=== PATIENT | male | born 1980 | race Caucasian/White ===

== ENCOUNTER → 2017-09-26 07:10 | Outpatient (CLI) | payer OTHER, SELFPAY ==
[2017-09-26 08:13] LABS: AST(SGOT) 25 U/L (15-37); Alanine Aminotransfer ALT/SGPT 61 U/L (16-61); Albumin, Serum 4.1 g/dL (3.2-5.0); Alkaline Phosphatase 81 U/L (45-117); Bilirubin, Direct 0.16 mg/dL (0.00-0.30); Cholesterol 163 mg/dL (200); Globulin 3.3 g/dL (2.2-4.2); High Density Lipoprotein 56 mg/dL; Protein, Total 7.4 g/dL (6.4-8.2); Triglycerides 71 mg/dL; Very Low Density Lipoprotein 14 mg/dL (5-40)
== END ==
PROVIDERS: Family Provider Family Medicine; PCP Family Medicine; Visit Provider Internal Medicine Cardiovascular Disease
DX: E78.5 Hyperlipidemia, unspecified (principal)
CPT/HCPCS: 36415; 80061; 80076

== ENCOUNTER 2018-03-10 16:00 | Outpatient (RCR) | payer OTHER, SELFPAY ==
--- NOTE | 2017-10-12 13:06 | MASS.EVAL ---
Massage Therapy Evaluation: Initial Evaluation Date: 10/05/2017 SUBJECTIVE: Jaya is a 37 year old male who was referred to the [facility] facility for a massotherapy evaluation by Dr. Samson Forbes with the diagnosis of migraines. Jaya presents today with the symptoms of having pain on the left side of his neck causing migraines. He reports having a medical history of migraines in the past. He reports having minimal limitations during his daily activities currently. OBJECTIVE: Upon observation Jaya has poor posture with her head forward and shoulders forward from the neutral position in sitting and standing. After examination and palpation I found him to have very high muscle tension with tenderness and myofascial restrictions in his sub occipitals, trapezius, rhomboids, scalenes and thoracic and pectorial muscles. The left was much worse then the right side. The first treatment consisted of a one hour massage to his neck and shoulders with myofascial release, muscle stripping, trigger point compression techniques, and cervical manual traction. ASSESSMENT: I feel that Jaya is a good candidate for massotherapy at this time. He had a favorable response to the first treatment with reduction in his muscle aches, pain and tension. He seemed to be a little bit sore from the treatment but his range of motion seemed to greatly improve. PLAN: The plan of care was reviewed with the patient. The patient is to be seen for a total of ten 1-hour sessions for the year 2017, with a recommendation of being treated every two weeks to get the migraines and neck and shoulder pain under control.
--- NOTE | 2018-07-05 13:06 | DS.PCM_ITS ---
Massage Therapy Discharge Summary: Discharge Date: 07/05/2018 Jaya was seen for a massotherapy evaluation on 10/05/2017 with the diagnosis of neck tightness with migraines. He was treated with three sessions of massage therapy consisting of moderate to deep pressure soft tissue techniques, myofascial release and trigger point compression to his cervical muscles and shoulders. Jaya responded well to the therapy by reporting decreased tension and pain throughout his neck and shoulders. He was able to schedule six appointments for the year 2017, which massage helped him. At this time this patient is being discharged from our care at [facility] facility.
== END 2018-03-10 19:00 | disposition home or self-care (01) ==
LOC: MASS 16:00
PROVIDERS: Family Provider Family Medicine; PCP Family Medicine; Visit Provider Family Medicine
DX: G43.909 Migraine, unspecified, not intractable, without status migrainosus (principal); M54.2 Cervicalgia
CPT/HCPCS: 97124

== ENCOUNTER → 2018-05-22 16:18 | Outpatient (CLI) | payer OTHER, SELFPAY ==
[2018-05-22 17:02] LABS: Absolute Lymphocyte Count 2.06 X10^3/ul (0.83-4.51); Absolute Neutrophil Count 2.9 X10^3/uL (2.0-7.7); Basophil# 0.02 X10^3/uL; Basophil% 0.3 % (0-1); Eosinophil# 0.18 X10^3/uL; Eosinophils% 3.1 % (0-5); Hematocrit 43.3 % (40-54); Hemoglobin 15.4 g/dl (13.0-16.5); Lymphocyte # 2.06 X10^3/ul (4.0); Lymphocyte % 35.5 % (19-41); Mean Corp Hgb Conc 35.6 g/gl (32-36); Mean Corpuscular Hgb 31.3 pg (27.0-32.0); Mean Platelet Vol. 11.7 fl (6.2-12.0); Monocyte# 0.65 X10^3/uL; Monocyte% 11.2 % (0-10); Neutrophil # 2.89 X10^3/uL (2.7-7.7); Neutrophil % 49.7 % (47-70); Platelet Count 183 K/mm3 (150-450); RBC Distribution Width CV 12.5 % (11.6-14.6); RBC Distribution Width SD 38.9 fl (35.1-43.9); Red Blood Count 4.92 M/mm3 (4.6-6.2); White Blood Count 5.8 K/mm3 (4.4-11.0)
[2018-05-22 17:14] LABS: CRP 4.35 mg/L (0.0-3.0)
[2018-05-22 17:16] LABS: POSITIVE COUNT NO; POSITIVE DIFFERENTIAL NO; POSITIVE MORPHOLOGY NO
== END ==
PROVIDERS: Family Provider Family Medicine; PCP Family Medicine; Referring Provider Family Medicine; Visit Provider Family Medicine
DX: M54.2 Cervicalgia (principal)
CPT/HCPCS: 36415; 85025; 86140

== ENCOUNTER → 2018-05-24 09:20 | Outpatient (CLI) | payer OTHER, SELFPAY ==
--- NOTE | 2018-05-24 09:24 | RAD_ITS ---
STUDY: X-RAY - CERVICAL SPINE REASON FOR EXAM: Male, 37 years old. Neck pain for several weeks. TECHNIQUE: 5 view(s) of the cervical spine were obtained including oblique views. COMPARISON: Comparison is made with prior examination dated August 23, 2014. FINDINGS: Normal anterior atlantoaxial articulation. Normal odontoid process. There is straightening of the normal cervical lordosis. Normal vertebral bodies and endplates. Normal disc space heights. Normal visualized intervertebral neuroforamina. The soft tissue structures are unremarkable. RAD/Cerv Spine 4 or 5 Views IMPRESSION: Straightening of the normal cervical lordosis. Electronically Signed: Lefty Beauchamp MD at 15:36 EDT Tel [phone], Service support ,
== END ==
PROVIDERS: Family Provider Family Medicine; PCP Family Medicine; Referring Provider Family Medicine; Visit Provider Family Medicine
DX: M54.2 Cervicalgia (principal)
CPT/HCPCS: 72050

== ENCOUNTER 2019-09-08 07:32 | Inpatient (IN) | payer OTHER, SELFPAY ==
[2019-05-28 09:53] VITALS: BMI 26.2
[2019-09-08 07:35] VITALS: BP 138/91; PULSE 121; RESP 18; TEMP 36.8; O2SAT 96; BMI 26.9
--- NOTE | 2019-09-08 07:46 | CT_ITS ---
STUDY: CT ABDOMEN AND PELVIS WITH CONTRAST REASON FOR EXAM: Male, 39 years old. FEVER AND LLQ PAIN RADIATION DOSAGE (If Supplied By Facility): CTDIvol = ( 17.04 ) mGy, DLP = ( 1149.11 ) mGycm TECHNIQUE: Transaxial images were obtained from the dome of the diaphragm to the symphysis pubis without oral contrast. IV 100mL Isovue-300 was administered. Sagittal and coronal images were reconstructed. Individualized dose optimization techniques were used for this CT. COMPARISON: None. FINDINGS: There is 0.4 cm right lower lung nodule. The visualized portions of the heart are within normal limits. Normal liver. Normal gallbladder and extrahepatic biliary system. There is mild splenomegaly. There are multiple benign calcified granulomata of the spleen. Normal pancreas. Normal bilateral adrenal glands. Normal right kidney. Normal left kidney. Normal visualized stomach. Normal small intestine. There is diverticulosis, with thickening of the sigmoid colon wall, and pelvic pericolonic inflammation changes consistent with acute diverticulitis. The appendix is visualized and appears normal. Normal abdominal aorta. Normal inferior vena cava. Normal retroperitoneum. Normal urinary bladder. Normal abdominal wall. Normal osseous structures. CT/Abdomen/Pelvis W IV Cont ONLY IMPRESSION: Sigmoid diverticulitis. No obstruction or abscess. Splenomegaly. Electronically Signed: Tristan Chisholm MD at 8:47 EST , Service support ,
--- NOTE | 2019-09-08 07:48 | ED.DCSUM_ITS ---
History of Present Illness Chief Complaint: Abd Pain Detail of Chief Complaint: Lower abdominal pain Informant: Patient Onset: Days - Onset Context: Sudden Onset Timing: Continuous Quality: Pain Location: Right and left lower quadrant Current Severity: Mild Maximum Severity: Severe Worsened by: Walking, laughing Relieved by: Nothing Associated Symptoms: Fever, nausea, loss of appetite and symptoms Narrative: Patient is a healthy 39-year-old male with no significant past medical history who presents with bilateral lower quadrant bowel pain that started . The pain is continuous. He reports fever, nausea and loss of appetite. He does report discomfort with urination and scrotal pain. Denies swelling of the scrotum or testicles. He denies penile discharge. He presents because the pain has not gotten better. He denies history of renal ureterolithiasis. He he denies antibiotic allergies. Prior similar symptoms: No Recent Illness/Hospitalization: No - Past Medical History (1) Hyperlipidemia Status: Chronic (2) Obstructive sleep apnea Status: Chronic Past Medical History - Allergies and Home Meds Allergies/Adverse Reactions: Allergies simvastatin Adverse Reaction (Intermediate, Verified 05/28/19 09:52) GI upset Primary Care Physician: Samson Forbes DO [Primary Care Provider] - Prior records reviewed: Yes Lives: Alone Smoking Status: Never smoker Alcohol: None Drugs: None Review of Systems General: Reports: Fever. Denies: Chills, Malaise, Subjective, Sweats ENT: Denies: Rhinorrhea, Sore throat Cardiovascular: Denies: Chest pain, Palpitations Respiratory: Denies: Dyspnea, Cough, Dyspnea on exertion Gastrointestinal: Reports: Abdominal pain, Nausea. Denies: Vomiting, Diarrhea, Constipation, Melena, Hematochezia, -, - Genitourinary: Denies: Hematuria, Frequency Musculoskeletal: Denies: Myalgias, Arthralgias, Neck pain, Back pain, Swelling, Extremity Pain, -, - Skin: Denies: Rash, Wounds Neurological: Denies: Headache, Weakness, Numbness Endocrine: Denies: Polyuria, Polydipsia, Heat intolerance, Cold intolerance, -, - Hematologic: Denies: Easy bruising, Easy bleeding Allergy: Denies: Uticaria Physical Exam Vital Signs/Narrative: Vital Signs Temp Pulse Resp BP Pulse Ox 09/08/19 07:35 100.8 F H 121 H 18 138/91 H 96 Inital Vital Signs reviewed: Yes General: Well nourished, Well developed, - - Appears uncomfortable. He is flushed. Head: Normocephalic, Atraumatic. Negative for: Trauma, Tenderness Eyes: Perrl, EOMI. Negative for: Pale conjunctiva, Scleral icterus ENT: Moist mucous membranes, No rhinorrhea Neck: Supple, Nontender, No lymphadenopathy, No JVD Cardiovascular: Regular rhythm, No murmurs, Normal S1, Normal S2, Tachycardia Respiratory: No distress, CTA bilaterally, Chest nontender Abdomen: Soft, Nondistended, No masses, Tender, Guarding, Rebound tenderness, Hypoactive bowel sounds. Negative for: Nontender, Normal bowel sounds, Hyperactive bowel sounds, Hepatomegaly, Splenomegaly, Mass, Pulsatile mass, Ventral hernia, Umbilical hernia Rectal: Deferred Back: Nontender, Normal Inspection. Negative for: CVA tenderness Extremities: Nontender, No edema Skin: Normal color, No rash, No Trauma. Negative for: Cyanosis, Diaphoresis, Jaundice Neurological: Alert, Oriented x3, Cranial nerves II-XII grossly intact, Normal Strength, Normal Sensation Psychological: Normal affect, Normal Mood Diagnostic/Tx/Re-eval Impressions Abdomen/Pelvis CT 09/08/19 07:46 IMPRESSION: Sigmoid diverticulitis. No obstruction or abscess. Splenomegaly. Electronically Signed: Tristan Chisholm MD at 8:47 EST , Service support , 09/08/19 07:46 Abdomen/Pelvis W IV Cont ONLY [CT] Stat Laboratory Results 09/08/19 09/08/19 07:53 07:53 WBC 16.0 H RBC 5.01 Hgb 15.3 Hct 43.3 MCV 86.4 MCH 30.5 MCHC 35.3 RDW Std Deviation 39.6 RDW Coeff of Fang 12.7 Plt Count 205 MPV 11.5 Immature Gran % (Auto) 0.300 Neut % (Auto) 78.4 H Lymph % (Auto) 10.8 L [place] % (Auto) 10.2 H Eos % (Auto) 0.1 Baso % (Auto) 0.2 Absolute Neuts (auto) 12.6 H Absolute Lymphs (auto) 1.73 Nucleated RBC % 0 Diff Path Review May foll Sodium 138 Potassium 4.0 Chloride 108 H Carbon Dioxide 24.0 Anion Gap 6 BUN 11 Creatinine 1.05 Estim Creat Clear Calc 112.89 Est GFR (MDRD) Af Amer 101 Est GFR (MDRD) Non-Af 84 BUN/Creatinine Ratio 10.5 Glucose 118 H Calcium 9.5 At the abdomen pelvis IV contrast was reviewed by me. There is evidence of acute diverticulitis. Patient does have an elevated white count. Since he has peritoneal findings with elevated white count tachycardia recommendation per literature is admission with IV antibiotics. Hospitalist has been paged for admission. He did receive first dose of Zosyn in the emergency department. - Medical Decision Making Complaint of lower abdominal pain fever with anorexia and peritoneal findings need to evaluate for appendicitis versus mesenteric adenitis versus diverticulitis. Patient does have urinary symptoms. This may be secondary to formation of the bowel/appendix causing bladder irritation. Will obtain CT of the abdomen with IV contrast. He was medicated with Zofran and morphine. Appropriate labs were obtained. ED Disposition - Plan for ED Patient: Disposition: Acute Care [facility] Diagnosis: Sigmoid diverticulitis, Peritonitis in infectious disease Referrals: Samson Forbes DO [Primary Care Provider] -
[2019-09-08] MEDS: 0.9% Normal Saline 1,000 ML 1000 ML IV (07:55)
[2019-09-08] MEDS: Ondansetron 4 MG/2 ML Vial IV ×2 (07:59→15:49)
[2019-09-08] MEDS: Morphine 4 MG/ML Syringe IV (08:00)
[2019-09-08 08:10] LABS: Absolute Lymphocyte Count 1.73 X10^3/uL (0.83-4.51); Absolute Neutrophil Count 12.6 X10^3/uL (2.0-7.7); Basophil# 0.03 X10^3/uL; Basophil% 0.2 % (0-1); Eosinophil# 0.01 X10^3/uL; Eosinophils% 0.1 % (0-5); Hematocrit 43.3 % (40-54); Hemoglobin 15.3 g/dL (13.0-16.5); Lymphocyte # 1.73 X10^3/ul (4.0); Lymphocyte % 10.8 % (19-41); Mean Corp Hgb Conc 35.3 g/dL (32-36); Mean Corpuscular Hgb 30.5 pg (27.0-32.0); Mean Corpuscular Volume 86.4 fL (80-94); Mean Platelet Vol. 11.5 fl (6.2-12.0); Monocyte# 1.63 X10^3/uL; Monocyte% 10.2 % (0-10); NRBC Flagged by Analyzer 0 % (0-5); Neutrophil # 12.58 X10^3/uL (2.7-7.7); Neutrophil % 78.4 % (47-70); POSITIVE DIFFERENTIAL YES; Platelet Count 205 K/mm3 (150-450); RBC Distribution Width CV 12.7 % (11.6-14.6); RBC Distribution Width SD 39.6 fl (35.1-43.9); Red Blood Count 5.01 M/mm3 (4.6-6.2)
[2019-09-08 08:11] LABS: Differential Indicated SCAN CRITERIA MET
[2019-09-08 08:22] LABS: Anion Gap 6 (5-15); BUN 11 mg/dL (7-18); BUN/Creat Ratio 10.5 RATIO (10-20); Calcium,Total 9.5 mg/dL (8.5-10.1); Chloride 108 mmol/L (98-107); Creatinine, Serum 1.05 mg/dL (0.70-1.30); EST Glomerular Filtration Rate 84 mL/min (>60); Est Glom Filt Rate - Afr Amer 101 mL/min (>60); Estimated Creatinine Clearance 112.89 ml/min; Glucose 118 mg/dL (74-106); Sodium Level 138 mmol/L (136-145)
--- NOTE | 2019-09-08 09:24 | HP.PCM_ITS ---
Problem List (1) Sigmoid diverticulitis Status: Acute (2) Bronchitis Status: Acute (3) Family history of ischemic heart disease Status: Chronic (4) Hyperlipidemia Status: Chronic (5) Cervicogenic headache Status: Chronic (6) Segmental and somatic dysfunction of thoracic region Status: Chronic (7) Segmental and somatic dysfunction of cervical region Status: Chronic (8) Cervical radiculopathy Status: Chronic (9) Cervical strain Status: Chronic (10) Obstructive sleep apnea Status: Chronic (11) Rapid palpitations Status: Chronic History of Present Illness Date of Admission: 09/08/19 Chief Complaint: Abdominal pain for 3 days The patient is a 39 year old M came to ER with abdominal pain predominantly over her lower abdomen for last 3 days. He describes abdominal pain, constant, 7- 10/10 intensity, exacerbated by movement/micturition, sudden onset with no precipitating factor. Patient also for subjective chills but was afebrile at home and in ED. His bowel movement initially was solid but is getting loose, semisolid yester day. No vomiting, hematemesis, melena or hematochezia. He had colonoscopy done about [address] Valente and was negative as per the patient. He was diagnosed with irritable bowel syndrome. The patient has other comorbidities including essential tremor on propranolol, dyslipidemia and headache. ER vitals, tachycardia 121 bpm, blood pressure stable. No hypoxia or tachypnea. Initial labs shows leukocytosis 16,000, with left shift neutrophils 78%. Glucose 118. UA negative. CT abdomen independently reviewed and shows sigmoid diverticulitis with infiltration into the sigmoid mesocolon. No obstruction or abscess or phlegmon. [] Past Medical History Past Medical History (Chronic Problems): Chronic Problems (Last Reviewed 05/28/19 @ 09:53 by Jennifer Henderosn) Family history of ischemic heart disease (Chronic) Hyperlipidemia (Chronic) Cervicogenic headache (Chronic) Segmental and somatic dysfunction of thoracic region (Chronic) Segmental and somatic dysfunction of cervical region (Chronic) Cervical radiculopathy (Chronic) Cervical strain (Chronic) Obstructive sleep apnea (Chronic) Rapid palpitations (Chronic) Medical History: Medical History (Last Reviewed 05/28/19 @ 09:53 by Jennifer Henderson) Family history of ischemic heart disease (Chronic) Z82.49 Hyperlipidemia (Chronic) E78.5 Obstructive sleep apnea (Chronic) G47.33 Rapid palpitations (Chronic) R00.2 Severe headache R51 neck/back pain Anxiety F41.9 Gout M10.9 Allergies simvastatin Adverse Reaction (Intermediate, Verified 05/28/19 09:52) GI upset Home Medications: Ambulatory Orders Medication Instructions Recorded [id number] 250 2 tab PO Q6H PRN 05/17/18 mg-250 mg-65 mg tablet Cholecalciferol (Vitamin D3) 2,000 unit PO DAILY 09/08/19 [Vitamin D3] Ezetimibe 10 mg PO DAILY 09/08/19 Gemfibrozil 600 mg PO BID 09/08/19 Propranolol HCl 10 mg PO BID 09/08/19 Surgical History: Surgical History (Last Reviewed 05/28/19 @ 09:53 by Jennifer Henderson) History of vasectomy Z98.52 Lives: Alone Smoking Status: Never smoker Alcohol: None Drugs: None - *Family History Paternal Family History: Family History (Last Reviewed 05/28/19 @ 09:53 by Jennifer Henderson) Father CAD (coronary artery disease) Uncle CAD (coronary artery disease) Review of Systems Constitutional: Reports: Anorexia, Chills HEENT: Denies: Head Aches, Sinus Congestion, Sinus Drainage Cardiovascular: Denies: Chest Pain, Palpitations Respiratory: Denies: Cough, Shortness of breath at rest, Sputum production Gastrointestinal: Reports: Abdominal Pain. Denies: Hematemesis, Hematochezia, Nausea, Melena, Vomiting Genitourinary: Denies: Dysuria, Frequency, Retention, Urgency Musculoskeletal: Denies: Joint Pain, Joint Tenderness Skin: Denies: Rash, Wounds Neurological: Denies: Numbness, Tingling, Focal weakness Psychiatric: Denies: Anxiety, Depression, Homicidal Ideations, Suicidal Ideations Hematologic/ Lymphatic: Denies: Easy Bruising, Easy Bleeding VTE Information - Inpt Only VTE Present on Admission: No VTE Mechan Device Prophylaxis: None VTE Pharm Prophylaxis ordered?: No Reason prophylaxis not ordered:: Procedure Not Indicated Patient Problems: Active and Suspected Problems (Last Reviewed 05/28/19 @ 09:53 by Jennifer Henderson) Sigmoid diverticulitis (Acute) - Physical Exam Vitals/I&O's: Vital Signs Temp Pulse Resp BP Pulse Ox 98.3 F 121 H 18 138/91 H 96 09/08/19 07:35 09/08/19 07:35 09/08/19 07:35 09/08/19 07:35 09/08/19 07:35 Oxygen Delivery Method Room Air Weight: 215 lb Body Mass Index (BMI) 26.9 Intake and Output for Last 24 Hours 09/06/19 09/07/19 09/08/19 23:59 23:59 23:59 Intake Total 1000 / 1000 Balance 1000 / 1000 General: Alert, Oriented x3, Cooperative HEENT: Atraumatic, PERRLA, EOMI, Normocephalic Oral: No Gingival or Mucosal Lesions/ Ulcerations, Dry Mucosa Neck: Supple, No JVD, Negative Carotid Bruits Lungs: Clear to auscultation, Normal air movement, No rhonchi, No wheeze, No rales Cardiovascular: Regular rate, Regular Rhythm, Normal S1, Normal S2, No murmurs Abdomen: Bowel Sounds Present, Soft, Non-Distended, Hypoactive Bowel Sounds, Tender - Tenderness over right and left lower quadrants. No rebound tenderness. No guarding or rigidity. No palpable mass. Extremities: No edema, Capillary Refill Less than 3 Seconds Skin: No rashes, No breakdown Musculoskeletal: No Tenderness to Palpation of Joints or Extremities Neurological: Cranial nerves II-XII grossly intact, Deep Tendon Reflexes 2+/4 and Symmetrical, Neuro grossly intact, - - Essential tremor. Psych/Mental Status: Normal Affect, Appropriate Laboratory Results 09/08/19 07:53: WBC 16.0 H, RBC 5.01, Hgb 15.3, Hct 43.3, MCV 86.4, MCH 30.5, MCHC 35.3, RDW Std Deviation 39.6, RDW Coeff of Fang 12.7, Plt Count 205, MPV 11.5, Immature Gran % (Auto) 0.300, Neut % (Auto) 78.4 H, Lymph % (Auto) 10.8 L, [place]win % (Auto) 10.2 H, Eos % (Auto) 0.1, Baso % (Auto) 0.2, Absolute Neuts (auto) 12.6 H, Absolute Lymphs (auto) 1.73, Nucleated RBC % 0, Diff Path Review November09/08/19 07:53: Sodium 138, Potassium 4.0, Chloride 108 H, Carbon Dioxide 24.0, Anion Gap 6, BUN 11, Creatinine 1.05, Estim Creat Clear Calc 112.89, Est GFR (MDRD) Af Amer 101, Est GFR (MDRD) Non-Af 84, BUN/Creatinine Ratio 10.5, Glucose 118 H, Calcium 9.5 Assessment/Plan All Active Problems (Last Reviewed 05/28/19 @ 09:53 by Jennifer Henderson) Sigmoid diverticulitis (Acute) Bronchitis (Acute) The patient is a 39 year old M came to ER with abdominal pain predominantly over her lower abdomen for last [address] findings suggestive of sigmoid diverticulitis He had colonoscopy done about [address] Valente and was negative as per the patient. He was diagnosed with irritable bowel syndrome. The patient has other comorbidities including essential tremor on propranolol, dyslipidemia and headache. ER vitals, tachycardia 121 bpm, blood pressure stable. No hypoxia or tachypnea. Initial labs shows leukocytosis 16,000, with left shift neutrophils 78%. Glucose 118. UA negative. 1. SIRS (tachycardia, heart rate 121 bpm and leukocytosis 16,000) with sepsis due to Sigmoid diverticulitis: Patient is being admitted in MedSurg floor. Started on full liquid diet. IV fluid normal saline 125 mils per hour. Patient received IV Zosyn in ED and will continue it. Pain control. Stool for enteric bacteriology panel, occult blood and WBC ordered. CT abdomen independently reviewed and shows sigmoid diverticulitis with infiltration into the sigmoid mesocolon. No obstruction or abscess or phlegmon. 2. Irritable bowel syndrome: Stable. 3. Essential tremor: Continue propranolol 4. Dyslipidemia: On simvastatin 5. Cervicogenic headache, cervical strain: Follows PCP. 6. Obstructive sleep apnea on CPAP DVT prophylaxis: Low risk. Early ambulation encouraged. Total time of the visit including total time spent in counseling or coordination of care, (more than 50% of the total time, spent in obtaining medical information from nurses and other ancillary care providers), discussion with the patient and her mother near the bedside, review of labs and imaging is 35 minutes Clinical Impression(s) from Imaging Studies Abdomen/Pelvis CT 09/08/19 07:46 IMPRESSION: Sigmoid diverticulitis. No obstruction or abscess. Splenomegaly. Code Visit Inpatient E&M: 22049 Init Hosp L3
[2019-09-08 09:35] VITALS: BP 138/86; PULSE 82; RESP 16; TEMP 36.8; O2SAT 97
[2019-09-08 09:49] LABS: Bacteria 0 SEEN /hpf (None Seen); Mucous, Urine 0 SEEN /hpf (<or=2+); Red Blood Cells-Urine 0 SEEN /hpf (0-5); Squamous Epithelial Cells - UA 0 SEEN /hpf (0-5); White Blood Cells 0 SEEN /hpf (0-5)
[2019-09-08 09:52] LABS: Color, Urine Yellow (Yellow); Glucose, Dipstick Normal (Normal); Ketone-Dipstick Negative (Negative); Leukocyte Esterase-Dipstick Negative /ul (Negative); Nitrite-Dipstick Negative (Negative); Occult Blood-Urine Negative /ul (Negative); Protein-Dipstick Negative (Negative); Urine Bilirubin Dipstick Negative (Negative); Urine Clarity Clear (Clear); Urine Urobilinogen Normal (Normal); Urine pH 6.5 (5.0 - 8.0)
[2019-09-08 10:16] VITALS: BMI 27.4; BMI 27.5
[2019-09-08 10:17] VITALS: BP 120/79; PULSE 86; RESP 16; TEMP 36.7; O2SAT 95
[2019-09-08] MEDS: 0.9% Normal Saline 1,000 ML 125 ML IV ×2 (11:18→18:53)
[2019-09-08] MEDS: 0.9% Saline Lock 10 ML Syringe IV ×3 (11:28→15:49)
--- NOTE | 2019-09-08 14:04 | NURSING ---
discharge instructions for diverticulitis given to pt from Ja[facility]- unable to locate on d/c instructions/
[2019-09-08] MEDS: Morphine 2 MG/ML Syringe IV (15:34)
[2019-09-08 15:42] VITALS: BP 115/75; PULSE 79; RESP 16; TEMP 36.7; O2SAT 99
[2019-09-08] MEDS: Acetaminophen/Butalbital/Caffe 1 Tablet PO ×2 (16:04→22:41)
[2019-09-08 20:49] VITALS: BP 124/77; PULSE 84; RESP 16; TEMP 36.7; O2SAT 96
[2019-09-08] MEDS: Gemfibrozil 600 MG Tablet PO (22:41)
[2019-09-08] MEDS: Propranolol 10 MG Tablet PO (22:41)
[2019-09-09] MEDS: 0.9% Normal Saline 1,000 ML 125 ML IV ×3 (02:59→20:18)
[2019-09-09 03:00] VITALS: BP 99/61; PULSE 71; RESP 16; TEMP 36.7; O2SAT 98
[2019-09-09 06:43] LABS: Absolute Lymphocyte Count 1.78 X10^3/uL (0.83-4.51); Absolute Neutrophil Count 6.1 X10^3/uL (2.0-7.7); Basophil# 0.03 X10^3/uL; Basophil% 0.3 % (0-1); Eosinophil# 0.12 X10^3/uL; Eosinophils% 1.4 % (0-5); Hematocrit 38.8 % (40-54); Hemoglobin 13.6 g/dL (13.0-16.5); Lymphocyte # 1.78 X10^3/ul (4.0); Lymphocyte % 20.1 % (19-41); Mean Corp Hgb Conc 35.1 g/dL (32-36); Mean Corpuscular Hgb 31.1 pg (27.0-32.0); Mean Corpuscular Volume 88.6 fL (80-94); Mean Platelet Vol. 11.8 fl (6.2-12.0); Monocyte# 0.85 X10^3/uL; Monocyte% 9.6 % (0-10); NRBC Flagged by Analyzer 0 % (0-5); Neutrophil # 6.07 X10^3/uL (2.7-7.7); Neutrophil % 68.4 % (47-70); Platelet Count 163 K/mm3 (150-450); RBC Distribution Width CV 12.6 % (11.6-14.6); RBC Distribution Width SD 40.9 fl (35.1-43.9); Red Blood Count 4.38 M/mm3 (4.6-6.2); White Blood Count 8.9 K/mm3 (4.4-11.0)
[2019-09-09 07:01] LABS: Anion Gap 6 (5-15); BUN 9 mg/dL (7-18); BUN/Creat Ratio 10.6 RATIO (10-20); Chloride 110 mmol/L (98-107); Creatinine, Serum 0.85 mg/dL (0.70-1.30); EST Glomerular Filtration Rate 107 mL/min (>60); Est Glom Filt Rate - Afr Amer 129 mL/min (>60); Estimated Creatinine Clearance 139.45 ml/min; Glucose 90 mg/dL (74-106); Potassium 4.1 mmol/L (3.5-5.1); Sodium Level 143 mmol/L (136-145)
[2019-09-09 08:09] VITALS: BP 125/69; PULSE 77; RESP 16; TEMP 36.8; O2SAT 95
[2019-09-09] MEDS: Gemfibrozil 600 MG Tablet PO ×2 (08:30→22:15)
[2019-09-09] MEDS: Propranolol 10 MG Tablet PO ×2 (08:30→22:15)
[2019-09-09] MEDS: Ezetimibe 10 MG Tablet PO (08:30)
[2019-09-09] MEDS: Acetaminophen/Butalbital/Caffe 1 Tablet PO ×2 (11:31→20:18)
--- NOTE | 2019-09-09 12:34 | PCM.PN.HOSP ---
Patient Problems: Active and Suspected Problems (Last Reviewed 05/28/19 @ 09:53 by Jennifer Henderson) Sigmoid diverticulitis (Acute) Reason for Visit: Sigmoid diverticulitis Objective: Patient had bowel movement today with blood on the surface of it. Bowel movement was semisolid but 2-3 times. Abdominal pain is better although it got exacerbated during bowel movement Fever or chills. No hypotension/tachycardia Vitals/I&O's: Vital Signs Temp Pulse Resp BP Pulse Ox 98.2 F 77 16 125/69 H 95 09/09/19 08:09 09/09/19 08:09 09/09/19 08:09 09/09/19 08:09 09/09/19 08:09 Oxygen Delivery Method Room Air Weight: 219 lb 12.814 oz Body Mass Index (BMI) 27.4 Intake and Output for Last 24 Hours 09/07/19 09/08/19 09/09/19 23:59 23:59 23:59 Intake Total 2867.17 / 2867.17 3142.25 / 3142.25 Balance 2867.17 / 2867.17 3142.25 / 3142.25 General: Alert, Oriented x3, Cooperative HEENT: Atraumatic, PERRLA, EOMI, Normocephalic Neck: Supple, No JVD, Negative Carotid Bruits Lungs: Clear to auscultation, Normal air movement, No rhonchi, No wheeze, No rales Cardiovascular: Regular rate, Regular Rhythm, Normal S1, Normal S2, No murmurs Abdomen: Bowel Sounds Present, Soft, Hypoactive Bowel Sounds, Tender - Mild tenderness over right and left lower quadrant. No palpable mass Extremities: No edema, Capillary Refill Less than 3 Seconds Skin: No rashes, No breakdown Musculoskeletal: No Tenderness to Palpation of Joints or Extremities Lymphatic: No Cervical, Supraclavicular, or Inguinal Adenopathy Neurological: Cranial nerves II-XII grossly intact, Deep Tendon Reflexes 2+/4 and Symmetrical, Neuro grossly intact Psych/Mental Status: Normal Affect, Appropriate Microbiology Past 72 Hours 09/09/19 07:15 Stool Enteric Bacteriology - Final 09/09/19 07:15 Stool Stool Occult Blood (GOMEZ) - Final Occult Blood Positive 09/09/19 07:15 Stool Stool Lactoferrin - Final Laboratory Results 09/09/19 05:43: WBC 8.9, RBC 4.38 L, Hgb 13.6, Hct 38.8 L, MCV 88.6, MCH 31.1, MCHC 35.1, RDW Std Deviation 40.9, RDW Coeff of Fang 12.6, Plt Count 163, MPV 11.8, Immature Gran % (Auto) 0.200, Neut % (Auto) 68.4, Lymph % (Auto) 20.1, [place] % (Auto) 9.6, Eos % (Auto) 1.4, Baso % (Auto) 0.3, Absolute Neuts (auto) 6.1, Absolute Lymphs (auto) 1.78, Nucleated RBC % 0 09/09/19 05:43: Sodium 143, Potassium 4.1, Chloride 110 H, Carbon Dioxide 27.0, Anion Gap 6, BUN 9, Creatinine 0.85, Estim Creat Clear Calc 139.45, Est GFR (MDRD) Af Amer 129, Est GFR (MDRD) Non-Af 107, BUN/Creatinine Ratio 10.6, Glucose 90, Calcium 9.0 Current Medications Acetaminophen (Tylenol) 650 mg PO Q6H PRN PRN PRN Reason: Pain Score 1-10/Temp > 100.7 F Acetaminophen/Butalbital/Caffeine (Fioricet) 1 tablet PO Q6H PRN PRN Reason: MIGRAINE SYMPTOMS Last Admin: 09/09/19 11:31 Dose: 1 tablet Documented by: Albuterol Sulfate (Ventolin Aerosols) 2.5 mg INHALATION Q2H PRN PRN PRN Reason: Shortness of Breath/Wheezing Ezetimibe (Zetia) 10 mg PO DAILY [facility] Last Admin: 09/09/19 08:30 Dose: 10 mg Documented by: Gemfibrozil (Lopid) 600 mg PO 1000,2200 [facility] Last Admin: 09/09/19 08:30 Dose: 600 mg Documented by: Glucagon () 1 mg IM .X1 PRN PRN Reason: Hypoglycemia Sodium Chloride () 250 mls @ 15 mls/hr IV .[id number] PRN PRN Reason: Saline Flush Last Infusion: 09/09/19 09:40 Dose: 15 mls/hr Documented by: Sodium Chloride () 1,000 mls @ 125 mls/hr IV .Q8H [facility] Last Admin: 09/09/19 11:31 Dose: 125 mls/hr Documented by: Piperacillin Sod/Tazobactam (Sod 3.375 gm/ Sodium Chloride) 50 mls @ 12.5 mls/hr IV Q8 [facility] Last Infusion: 09/09/19 09:40 Dose: Infused Documented by: Dextrose (Dextrose 10%-Water) 250 mls @ 999 mls/hr IV .Q16M PRN; Protocol PRN Reason: HYPOGLYCEMIA Morphine Sulfate () 2 mg IV Q3H PRN PRN PRN Reason: Pain Score 6-10/10 Last Admin: 09/08/19 15:34 Dose: 2 mg Documented by: Ondansetron HCl (Zofran) 4 mg IV Q8H PRN PRN PRN Reason: NAUSEA/VOMITING Last Admin: 09/08/19 15:49 Dose: 4 mg Documented by: Oxycodone HCl (Oxyir) 5 mg PO Q4H PRN PRN PRN Reason: Pain Score 4-5/10 Prochlorperazine Edisylate (Compazine Iv) 5 mg IV Q4H PRN PRN PRN Reason: Breakthrough nausea/vomiting Propranolol HCl (Inderal) 10 mg PO BID [facility] Last Admin: 09/09/19 08:30 Dose: 10 mg Documented by: Senna/Docusate Sodium (Senokot-S, Haley-Colace) 2 tablet PO BID PRN PRN PRN Reason: Constipation Sodium Chloride () 10 - 40 ml IV UD PRN PRN Reason: SALINE FLUSH Last Admin: 09/08/19 15:49 Dose: 10 ml Documented by: Medical Necessity - Tobacco Use Smoking Status: Never smoker Assessment/Plan All Active Problems (Last Reviewed 05/28/19 @ 09:53 by Jennifer Henderson) Sigmoid diverticulitis (Acute) Bronchitis (Acute) The patient is a 39 year old M came to ER with abdominal pain predominantly over her lower abdomen for last [address] findings suggestive of sigmoid diverticulitis He had colonoscopy done about [address] Valente and was negative as per the patient. He was diagnosed with irritable bowel syndrome. The patient has other comorbidities including essential tremor on propranolol, dyslipidemia and headache. ER vitals, tachycardia 121 bpm, blood pressure stable. No hypoxia or tachypnea. Initial labs shows leukocytosis 16,000, with left shift neutrophils 78%. Glucose 118. UA negative. 1. SIRS (tachycardia, heart rate 121 bpm and leukocytosis 16,000) with sepsis due to Sigmoid diverticulitis: Patient is being admitted in [facility] floor. Started on full liquid diet. IV fluid normal saline 125 mils per hour. Patient received IV Zosyn in ED and will continue it. Pain control. Stool for enteric bacteriology panel, occult blood and WBC ordered. CT abdomen independently reviewed and shows sigmoid diverticulitis with infiltration into the sigmoid mesocolon. No obstruction or abscess or phlegmon. 09/09: No leukocytosis. Small blood in the stool. Occult blood positive. Enteric bacteriology negative. Stool WBC negative. Discussed with surgeon, Dr. Posey and advised follow-up with surgery in 2 weeks after discharge for colonoscopy. 2. Irritable bowel syndrome: Stable. 3. Essential tremor: Continue propranolol 4. Dyslipidemia: On simvastatin 5. Cervicogenic headache, cervical strain: Follows PCP. 6. Obstructive sleep apnea on CPAP DVT prophylaxis: Low risk. Early ambulation encouraged. Total time of the visit including total time spent in counseling or coordination of care, (more than 50% of the total time, spent in obtaining medical information from nurses and other ancillary care providers), , review of labs and imaging is 30 minutes Microbiology Past 72 Hours 09/09/19 07:15 Stool Enteric Bacteriology - Final 09/09/19 07:15 Stool Stool Occult Blood (GOMEZ) - Final Occult Blood Positive 09/09/19 07:15 Stool Stool Lactoferrin - Final Laboratory Results 09/09/19 05:43: WBC 8.9, RBC 4.38 L, Hgb 13.6, Hct 38.8 L, MCV 88.6, MCH 31.1, MCHC 35.1, RDW Std Deviation 40.9, RDW Coeff of Fang 12.6, Plt Count 163, MPV 11.8, Immature Gran % (Auto) 0.200, Neut % (Auto) 68.4, Lymph % (Auto) 20.1, [place] % (Auto) 9.6, Eos % (Auto) 1.4, Baso % (Auto) 0.3, Absolute Neuts (auto) 6.1, Absolute Lymphs (auto) 1.78, Nucleated RBC % 0 09/09/19 05:43: Sodium 143, Potassium 4.1, Chloride 110 H, Carbon Dioxide 27.0, Anion Gap 6, BUN 9, Creatinine 0.85, Estim Creat Clear Calc 139.45, Est GFR (MDRD) Af Amer 129, Est GFR (MDRD) Non-Af 107, BUN/Creatinine Ratio 10.6, Glucose 90, Calcium 9.0 Clinical Impression(s) from Imaging Studies Abdomen/Pelvis CT 09/08/19 07:46 IMPRESSION: Sigmoid diverticulitis. No obstruction or abscess. Splenomegaly. Code Visit Inpatient E&M: 83868 Subs Hosp L2
[2019-09-09 14:10] VITALS: BP 120/73; PULSE 83; RESP 16; TEMP 36.8; O2SAT 96
[2019-09-09] MEDS: 0.9% Saline Lock 10 ML Syringe IV (14:23)
[2019-09-09 21:00] VITALS: BP 131/82; PULSE 81; RESP 18; TEMP 36.8; O2SAT 97
[2019-09-10] MEDS: 0.9% Normal Saline 1,000 ML 125 ML IV (04:36)
[2019-09-10 04:44] VITALS: BP 122/74; PULSE 84; RESP 18; TEMP 36.6; O2SAT 97
--- NOTE | 2019-09-10 09:36 | PCM.DC ---
- Discharge Diagnoses Current Active Problems: Current Active and Chronic Problems (Last Reviewed 05/28/19 @ 09:53 by Jennifer Henderson) Sigmoid diverticulitis (Acute) You will use the following diet at home:: Other - SOFT, LOW fibre diet for 3 days and then solid, low fibre diet for 1 month Your food should be the consistency of: Regular Discharge Activity: May Not Drive - for 5 days Weight Bearing Status: Weight bearing as tolerated Call your doctor if you observe: Fever of 101 or Higher, Inability to urinate, Inability to have a bowel movement, Shortness of breath, Dizziness, Fainting spells, Swelling in the ankles, Chest pain, Prolonged hiccoughing, Increased palpitations (irregular heartbeat), Uncontrolled pain Instructions: Low-Residue Diet, Understanding Diverticulosis and Diverticulitis Allergies/Adverse Reactions: Allergies simvastatin Adverse Reaction (Intermediate, Verified 05/28/19 09:52) GI upset Medications to take at Discharge fhviuhe-tuxgbazxkrqoz-difvvttg 250 mg-250 mg-65 mg tablet 2 tab PO Q6H PRN 05/17/18 Cholecalciferol (Vitamin D3) [Vitamin D3] 2,000 unit PO DAILY 09/08/19 Ezetimibe 10 mg PO DAILY 09/08/19 Gemfibrozil 600 mg PO BID 09/08/19 Propranolol HCl 10 mg PO BID 09/08/19 Ciprofloxacin [Cipro] 500 mg PO BID #14 tab 09/10/19 Metronidazole [Flagyl] 500 mg PO TID #20 tab 09/10/19 Senna/Docusate Sodium [Senokot-S] 2 tab PO BID PRN PRN tab 09/10/19 The following prescriptions were given: Ciprofloxacin [Cipro] 500 mg PO BID #14 tab Transmission Status: Received by [facility] Metronidazole [Flagyl] 500 mg PO TID #20 tab Transmission Status: Received by [facility] Primary Care Physician: Samson Forbes DO [Primary Care Provider] - Please follow up with your Primary Care Physician in: in 1-2 weeks Test Results: Test results from this visit will be discussed in further detail at your follow-up appointment, if applicable. Please Follow Up With: Jyothi Posey MD When: in 2 weeks to schedule colonoscopy
[2019-09-10 09:57] VITALS: BP 128/79; PULSE 82; RESP 16; TEMP 36.6; O2SAT 95
[2019-09-10] MEDS: Ezetimibe 10 MG Tablet PO (10:01)
[2019-09-10] MEDS: Propranolol 10 MG Tablet PO (10:02)
[2019-09-10] MEDS: Gemfibrozil 600 MG Tablet PO (10:02)
[2019-09-10] MEDS: levoFLOXacin IV 750 MG/150 ML BAG 100 MG IV (10:04)
--- NOTE | 2019-09-10 10:05 | CASEMGMT ---
RN ALEX Face to Face with patient for initial transition planning/care coordination assessment. RN CM introduced self and role at [facility]. Patient lying in bed, alert and oriented. Patient willing to participate in assessment and is able to answer all questions appropriately. Care providers, pharmacy, and demographics verified. Patient wishes to discharge home, denies need for home health at this time. Patient states he has no further needs or concerns at this time. CM to follow for discharge planning needs that may arise. 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 Patient is independent at home Transportation: self/ family DME/HHC: Patient has Bipap but does not wear. Patient denies further needs Disposition Plan: Patient to discharge home with family support and follow-up plans in place. Nerissa SIMPSON, RN, CM
[2019-09-10] MEDS: Acetaminophen 325 MG Tablet 650 MG PO (11:59)
[2019-09-10] MEDS: metroNIDAZOLE 500 MG/100 ML BAG 100 MG IV (11:59)
[2019-09-10 14:35] LABS: Pathologist Review Reviewed
[2019-09-10 14:47] VITALS: BP 131/81; PULSE 75; RESP 16; TEMP 37.1; O2SAT 96
[2019-09-10] MEDS: Acetaminophen/Butalbital/Caffe 1 Tablet PO (15:06)
--- NOTE | 2019-09-10 15:39 | PCM.DC.SUM ---
Discharge Date and Diagnosis Date of Admission: 09/08/19 Date of Discharge: 09/10/19 - Primary Discharge Diagnosis Active and Suspected Problems (Last Reviewed 05/28/19 @ 09:53 by Jennifer Henderson) Sigmoid diverticulitis (Acute) - Secondary Discharge Diagnosis Chronic Problems (Last Reviewed 05/28/19 @ 09:53 by Jennifer Henderson) Family history of ischemic heart disease (Chronic) Hyperlipidemia (Chronic) Cervicogenic headache (Chronic) Segmental and somatic dysfunction of thoracic region (Chronic) Segmental and somatic dysfunction of cervical region (Chronic) Cervical radiculopathy (Chronic) Cervical strain (Chronic) Obstructive sleep apnea (Chronic) Rapid palpitations (Chronic) Hospital Course and Treatment Summary of Care Provided: [] The patient is a 39 year old M came to ER with abdominal pain predominantly over her lower abdomen for last [address] findings suggestive of sigmoid diverticulitis He had colonoscopy done about [address] Valente and was negative as per the patient. He was diagnosed with irritable bowel syndrome. The patient has other comorbidities including essential tremor on propranolol, dyslipidemia and headache. ER vitals, tachycardia 121 bpm, blood pressure stable. No hypoxia or tachypnea. Initial labs shows leukocytosis 16,000, with left shift neutrophils 78%. Glucose 118. UA negative. 1. SIRS (tachycardia, heart rate 121 bpm and leukocytosis 16,000) with sepsis due to Sigmoid diverticulitis: Patient is being admitted in [facility] floor. Started on full liquid diet. IV fluid normal saline 125 mils per hour. Patient received IV Zosyn in ED and will continue it. Pain control. Stool for enteric bacteriology panel, occult blood and WBC ordered. CT abdomen independently reviewed and shows sigmoid diverticulitis with infiltration into the sigmoid mesocolon. No obstruction or abscess or phlegmon. Stool for occult blood positive. Enteric bacteriology panel negative. Stool for WBC negative. It seems patient did not had much improvement with IV Zosyn therefore antibiotic changed to Levaquin and Flagyl. Patient had 1 dose of Levaquin 750 mg IV and Flagyl. Patient abdominal pain has mildly improved. He was told he might have low intensity lower quadrant abdominal pain secondary to diverticulitis for few more days. Advised gxjx-ahm-dztbwsj Motrin 400 mg -600 mg every 6 hourly as needed for pain. Prescription given for Cipro and Flagyl for 7 more days to complete a total of 10 days. Follow-up with surgeon Dr. Orozco in 2 weeks to schedule colonoscopy. 2. Irritable bowel syndrome: Stable. 3. Essential tremor: Continue propranolol 4. Dyslipidemia: On simvastatin 5. Cervicogenic headache, cervical strain: Follows PCP. 6. Obstructive sleep apnea on CPAP DVT prophylaxis: Low risk. Early ambulation encouraged. Discharge medication reconciliation done. Discharge follow-up instructions completed. Discharge process discussed with the patient and all questions were answered to patient's satisfaction. Advised soft diet with low residue for 5 days and then solid diet with low residue for 4 weeks. Total time spent, exact 35 minutes on discharge meds reconciliation, examination, coordination of care with nurses and ancillary staff, review of imaging and blood test and discussion with the patient on follow-up instructions Subjective: Seen and examined. Most of the time patient has no pain but gets mild lower quadrant pain about 2-3/10 intensity pain in lower quadrants on bowel movement or moving around. No further blood in the stool. - Physical Exam Vitals/I&O's: Vital Signs Temp Pulse Resp BP Pulse Ox 97.9 F 84 18 122/74 H 97 09/10/19 04:44 09/10/19 04:44 09/10/19 04:44 09/10/19 04:44 09/10/19 04:44 Oxygen Delivery Method Room Air Weight: 219 lb 12.814 oz Body Mass Index (BMI) 27.4 Intake and Output for Last 24 Hours 09/08/19 09/09/19 09/10/19 23:59 23:59 23:59 Intake Total 2867.17 / 2867.17 5676.80 / 5676.80 1092.75 / 1092.75 Balance 2867.17 / 2867.17 5676.80 / 5676.80 1092.75 / 1092.75 General: Alert, Oriented x3, Cooperative HEENT: Atraumatic, PERRLA, EOMI, Normocephalic Neck: Supple, No JVD, Negative Carotid Bruits Lungs: Clear to auscultation, Normal air movement, No rhonchi, No wheeze, No rales Cardiovascular: Regular rate, Regular Rhythm, Normal S1, Normal S2, No murmurs Abdomen: Bowel Sounds Present, Soft, Non-Distended, Tender - Slight tenderness on deep palpation in left and right lower quadrants Extremities: No edema, Capillary Refill Less than 3 Seconds Skin: No rashes, No breakdown Musculoskeletal: No Tenderness to Palpation of Joints or Extremities Lymphatic: No Cervical, Supraclavicular, or Inguinal Adenopathy Neurological: Cranial nerves II-XII grossly intact, Deep Tendon Reflexes 2+/4 and Symmetrical, Neuro grossly intact Psych/Mental Status: Normal Affect, Appropriate Microbiology Past 72 Hours 09/09/19 07:15 Stool Enteric Bacteriology - Final 09/09/19 07:15 Stool Stool Occult Blood (GOMEZ) - Final Occult Blood Positive 09/09/19 07:15 Stool Stool Lactoferrin - Final Current Medications Acetaminophen (Tylenol) 650 mg PO Q6H PRN PRN PRN Reason: Pain Score 1-10/Temp > 100.7 F Acetaminophen/Butalbital/Caffeine (Fioricet) 1 tablet PO Q6H PRN PRN Reason: MIGRAINE SYMPTOMS Last Admin: 09/09/19 20:18 Dose: 1 tablet Documented by: Albuterol Sulfate (Ventolin Aerosols) 2.5 mg INHALATION Q2H PRN PRN PRN Reason: Shortness of Breath/Wheezing Ezetimibe (Zetia) 10 mg PO DAILY [facility] Last Admin: 09/09/19 08:30 Dose: 10 mg Documented by: Gemfibrozil (Lopid) 600 mg PO 1000,2200 [facility] Last Admin: 09/09/19 22:15 Dose: 600 mg Documented by: Glucagon () 1 mg IM .X1 PRN PRN Reason: Hypoglycemia Sodium Chloride () 250 mls @ 15 mls/hr IV .[id number] PRN PRN Reason: Saline Flush Last Infusion: 09/10/19 05:27 Dose: 0 mls/hr Documented by: Dextrose (Dextrose 10%-Water) 250 mls @ 999 mls/hr IV .Q16M PRN; Protocol PRN Reason: HYPOGLYCEMIA Metronidazole (Flagyl) 500 mg in 100 mls @ 100 mls/hr IV Q8 [facility] Levofloxacin (Levaquin Iv) 750 mg in 150 mls @ 100 mls/hr IV X1 ONE Stop: 09/10/19 11:02 Morphine Sulfate () 2 mg IV Q3H PRN PRN PRN Reason: Pain Score 6-10/10 Last Admin: 09/08/19 15:34 Dose: 2 mg Documented by: Oxycodone HCl (Oxyir) 5 mg PO Q4H PRN PRN PRN Reason: Pain Score 4-5/10 Prochlorperazine Edisylate (Compazine Iv) 5 mg IV Q4H PRN PRN PRN Reason: Breakthrough nausea/vomiting Propranolol HCl (Inderal) 10 mg PO BID [facility] Last Admin: 09/09/19 22:15 Dose: 10 mg Documented by: Senna/Docusate Sodium (Senokot-S, Haley-Colace) 2 tablet PO BID PRN PRN PRN Reason: Constipation Sodium Chloride () 10 - 40 ml IV UD PRN PRN Reason: SALINE FLUSH Last Admin: 09/09/19 14:23 Dose: 10 ml Documented by: Discharge Activity: May Not Drive - for 5 days Call your doctor if you observe: Fever of 101 or Higher, Inability to urinate, Inability to have a bowel movement, Shortness of breath, Dizziness, Fainting spells, Swelling in the ankles, Chest pain, Prolonged hiccoughing, Increased palpitations (irregular heartbeat), Uncontrolled pain Home Medications: Medications to take at Discharge obeddof-cqxslkjpssgxj-hlwwbkzj 250 mg-250 mg-65 mg tablet 2 tab PO Q6H PRN 05/17/18 Cholecalciferol (Vitamin D3) [Vitamin D3] 2,000 unit PO DAILY 09/08/19 Ezetimibe 10 mg PO DAILY 09/08/19 Gemfibrozil 600 mg PO BID 09/08/19 Propranolol HCl 10 mg PO BID 09/08/19 Ciprofloxacin [Cipro] 500 mg PO BID #14 tab 09/10/19 Metronidazole [Flagyl] 500 mg PO TID #20 tab 09/10/19 Senna/Docusate Sodium [Senokot-S] 2 tab PO BID PRN PRN tab 09/10/19 Following Prescrptions Were Given to Patient: Ciprofloxacin [Cipro] 500 mg PO BID #14 tab Transmission Status: Received by [facility] Metronidazole [Flagyl] 500 mg PO TID #20 tab Transmission Status: Received by [facility] Primary Care Physician: Samson Forbes DO [Primary Care Provider] - Please follow up with your Primary Care Physician in: in 1-2 weeks Please Follow Up With: Jyothi Posey MD When: in 2 weeks to schedule colonoscopy Patient Instructions: Low-Residue Diet, Understanding Diverticulosis and Diverticulitis Medical Necessity - Tobacco Use Smoking Status: Never smoker Meaningful Use Info Meaningful Use Diagnoses (Choose all that apply): None applicable Code Visit Inpatient E&M: 47425 Disch Hosp
== END 2019-09-10 15:41 | disposition home or self-care (01) | DRG 872 ==
LOC: ED 09:07 → MS3 09:30
PROVIDERS: Admitting Provider Internal Medicine; Emergency Provider Emergency Medicine; PCP Family Medicine; Visit Provider Internal Medicine
DX: A41.9 Sepsis, unspecified organism (principal); K57.32 Diverticulitis of large intestine without perforation or abscess without bleeding; G25.0 Essential tremor; E78.5 Hyperlipidemia, unspecified; K58.9 Irritable bowel syndrome, unspecified; G47.33 Obstructive sleep apnea (adult) (pediatric); R51 Headache; M99.02 Segmental and somatic dysfunction of thoracic region; M99.01 Segmental and somatic dysfunction of cervical region; M54.12 Radiculopathy, cervical region
CPT/HCPCS: 36415; 74177; 80048; 81001; 82274; 83630; 85025; 87506; 97802; 99284; J7030; J7050; Q9967; A4216; J2405

== ENCOUNTER → 2019-10-30 16:36 | Outpatient (CLI) | payer OTHER, SELFPAY ==
[2019-09-08 10:16] VITALS: BMI 27.4
[2019-10-30 17:18] LABS: Absolute Lymphocyte Count 2.07 X10^3/uL (0.83-4.51); Absolute Neutrophil Count 3.6 X10^3/uL (2.0-7.7); Basophil# 0.03 X10^3/uL; Basophil% 0.5 % (0-1); Eosinophil# 0.16 X10^3/uL; Eosinophils% 2.5 % (0-5); Hematocrit 43.9 % (40-54); Hemoglobin 15.5 g/dL (13.0-16.5); Lymphocyte # 2.07 X10^3/ul (4.0); Lymphocyte % 31.8 % (19-41); Mean Corp Hgb Conc 35.3 g/dL (32-36); Mean Corpuscular Volume 87.8 fL (80-94); Mean Platelet Vol. 11.5 fl (6.2-12.0); Monocyte# 0.66 X10^3/uL; Monocyte% 10.1 % (0-10); NRBC Flagged by Analyzer 0 % (0-5); Neutrophil # 3.57 X10^3/uL (2.7-7.7); Neutrophil % 54.8 % (47-70); Platelet Count 215 K/mm3 (150-450); RBC Distribution Width CV 12.4 % (11.6-14.6); RBC Distribution Width SD 39.3 fl (35.1-43.9); White Blood Count 6.5 K/mm3 (4.4-11.0)
[2019-10-30 17:33] LABS: Erythrocyte Sedimentation Rate 2 mm/hr (0-15)
[2019-10-31 20:37] LABS: ALB/GLOB Ratio 1.3 RATIO (0.9-2.4); AST(SGOT) 28 U/L (15-37); Alanine Aminotransfer ALT/SGPT 69 U/L (16-61); Albumin, Serum 4.5 g/dL (3.2-5.0); Alkaline Phosphatase 88 U/L (45-117); Anion Gap 6 (5-15); BUN 12 mg/dL (7-18); BUN/Creat Ratio 13.6 RATIO (10-20); CRP < 2.90 mg/L (0.0-3.0); Calcium,Total 9.7 mg/dL (8.5-10.1); Chloride 108 mmol/L (98-107); Creatinine, Serum 0.88 mg/dL (0.70-1.30); EST Glomerular Filtration Rate 102 mL/min (>60); Est Glom Filt Rate - Afr Amer 124 mL/min (>60); Globulin 3.4 g/dL (2.2-4.2); Glucose 96 mg/dL (74-106); Potassium 4.2 mmol/L (3.5-5.1); Protein, Total 7.9 g/dL (6.4-8.2); Sodium Level 139 mmol/L (136-145)
== END ==
PROVIDERS: PCP Family Medicine; Referring Provider Family Medicine; Visit Provider Family Medicine
DX: R07.9 Chest pain, unspecified (principal); R00.2 Palpitations; R51 Headache
CPT/HCPCS: 36415; 80053; 85025; 85652; 86140

== ENCOUNTER → 2022-10-30 | Outpatient (CLI) | payer OTHER, SELFPAY | END | disposition home or self-care (01) | PROVIDERS: PCP Family Medicine; Referring Provider Nurse Practitioner Family; Visit Provider Nurse Practitioner Family | DX: J02.9 Acute pharyngitis, unspecified (principal) | CPT/HCPCS: 87070 ==

== ENCOUNTER 2023-04-03 17:12 | Emergency (ER) | payer OTHER, SELFPAY ==
[2023-04-03 17:13] VITALS: BP 143/97; PULSE 64; RESP 18; TEMP 36.6; O2SAT 97; BMI 29.3
--- NOTE | 2023-04-03 18:38 | EDS_ITS ---
HPI History of Present Illness Chief Complaint: Bite Informant: patient Narrative Narrative: Patient was bitten several times by his father's dog. Right lower and right upper extremities. He is right-hand dominant. Patient states that the dog has had its shots, has not been ill lately. It can continue to be monitored by his father. Tetanus Immunization: Unknown ROS [facility] ED Constitutional Constitutional ED: Denies chills or fever(s) Musculoskeletal Musculoskeletal: Reports extremity pain; Denies neck pain Integumentary Reports as per HPI and Abrasions; Denies rash Neurologic Neurologic: Denies paresthesias or weakness PFSH PFSH Medical History Anxiety Family history of ischemic heart disease Gout Hyperlipidemia neck/back pain Obstructive sleep apnea Rapid palpitations Severe headache Home Medications acetaminophen 500 mg tablet (Tylenol Extra Strength) 500 mg PO Q6H PRN 10/30/22 [History Last Taken Unknown] amoxicillin 875 mg-potassium clavulanate 125 mg tablet 875 mg (0.875 x 875-125 mg) PO Q12H #20 TABLETS 04/03/23 [Rx Last Taken Unknown] Allergy/AdvReac Type Severity Reaction Status Date / Time simvastatin AdvReac Intermediate GI upset Verified 04/03/23 17:13 Family History Father CAD (coronary artery disease) Uncle CAD (coronary artery disease) Surgical History History of vasectomy Social History Smoking Status: Never smoker alcohol intake: never EXAM Physical Exam Const Vital Signs: 04/03/23 17:13 Temperature 97.9 F Temperature Source Temporal Pulse Rate 64 Respiratory Rate 18 Blood Pressure 143/97 H Blood Pressure Mean 112 Pulse Ox 97 Oxygen Delivery Method Room Air Positive well nourished and well developed General Appearance ED: well developed and NAD Neck full ROM and supple Back/Spine normal ROM and normal to inspection Extremity Extremity Narrative: Dog bite-related injuries to the right forearm and right lower leg. No bony tenderness, full range of motion all joints, all compartments soft and nondistended. Normal distal pulses. Neuro oriented x3, no focal motor deficits and no sensory deficits noted Sensorium / Orientation: alert Psych mental status grossly normal and thought process normal Skin Skin Narrative: Multiple superficial abrasions on both sides of the right forearm, there is a single puncture associated with one of the abrasions on the dorsum of the right mid forearm, there appears to be some superficial epidermis loss due to these abrasions from teeth according to the patient, with a puncture within it. Does not appear to be a laceration that requires repair. Very minor bleeding from the wound. No surrounding swelling. Also superficial abrasions to the right lower leg no punctures or lacerations here with no bleeding. Rashes: no rashes MDM MDM MDM Narrative Medical decision making narrative: Reassured this patient, supportive care is advised along with antibiotics because of the puncture in the forearm. I would not suture this, it does not look like 2 edges of skin that belong together because there is tissue loss, plus a very small sized puncture. He states he is concerned it is deep. This may or may not be the case, but irrelevant when it comes to whether the wound needs to be repaired or not as I discussed with him. We cleansed it thoroughly, dressed it, as well as the other wounds, and place him on Augmentin and did advise to watch for signs of infection. With regards to his tetanus, he is not sure when his last 1 was, he thinks it could be 2 years ago or 10 years ago, so he prefers to follow-up with his doctor to check records before he commits to another shot. Discharge Plan Triage Chief Complaint: Bite ED Provider: Tristan Marie Dx/Rx/DC Orders Clinical Impression: Open wound of right forearm due to dog bite Instructions: ED Dog Bite Prescriptions: New amoxicillin-pot clavulanate [amoxicillin-pot clavulanate] 875-125 mg tablet 875 mg PO Q12H Qty: 20 0RF No Action acetaminophen [Tylenol Extra Strength] 500 mg tablet 500 mg PO Q6H PRN Primary Care Provider: Samson Forbes Referrals: Samson Forbes DO [Primary Care Provider] - As Needed Disposition Disposition: Home, Self Care
[2023-04-03] MEDS: Amox/Clavulanate 875 MG Tablet PO (18:51)
== END 2023-04-03 19:36 | disposition home or self-care (01) ==
PROVIDERS: Emergency Provider Emergency Medicine; PCP Family Medicine; Visit Provider Emergency Medicine
DX: S51.831A Puncture wound without foreign body of right forearm, initial encounter (principal); W54.0XXA Bitten by dog, initial encounter; E78.5 Hyperlipidemia, unspecified; Z98.52 Vasectomy status
CPT/HCPCS: 99283

== ENCOUNTER 2024-02-02 18:35 | Emergency (ER) | payer OTHER, SELFPAY ==
[2024-02-02 18:36] VITALS: BP 144/85; PULSE 85; RESP 16; TEMP 36.4; O2SAT 99; BMI 29.9
[2024-02-02 18:38] VITALS: BP 144/85; PULSE 72; RESP 15; TEMP 36.4; O2SAT 99
--- NOTE | 2024-02-02 19:09 | CT_ITS ---
EXAM: CT ABDOMEN AND PELVIS WITHOUT INTRAVENOUS CONTRAST CLINICAL INDICATION: LEFT FLANK PAIN TECHNIQUE: Helically acquired images were obtained of the abdomen and pelvis without intravenous contrast. This CT exam was performed using one or more of the following dose reduction techniques: automated exposure control, adjustment of the mA and/or kV according to patient size, and/or use of iterative reconstruction technique. COMPARISON: 09/08/2019 FINDINGS: LOWER THORAX: No significant abnormality. Lung bases are clear. No cardiomegaly. No significant pericardial effusion. ABDOMEN: LIVER: No significant abnormality. Homogeneous. GALLBLADDER AND BILE DUCTS: No significant abnormality. No calcified gallstones. No gallbladder distention or wall edema. No intra- or extrahepatic biliary ductal dilation. PANCREAS: No significant abnormality. No focal cystic mass. SPLEEN: Splenic granulomas. Otherwise, the spleen appears normal. ADRENALS: No significant abnormality. No nodules. KIDNEYS AND URETERS: No significant abnormality. Normal renal size and position. No hydronephrosis. STOMACH AND BOWEL: Inflammatory changes around the sigmoid colon with focal wall thickening and associated diverticulosis indicating acute uncomplicated diverticulitis. No evidence of bowel obstruction. PELVIS: APPENDIX: Normal appendix in the right lower quadrant. BLADDER: No significant abnormality. REPRODUCTIVE: Normal as visualized. No mass. ABDOMEN and PELVIS: INTRAPERITONEAL SPACE: Minimal inflammatory stranding in the lower pelvic mesentery. No evidence of abscess or free air. BONES/JOINTS: No significant abnormality. No suspicious lytic or blastic abnormality. SOFT TISSUES: Small fat-containing umbilical hernia. VASCULATURE: No significant abnormality. Abdominal aorta is non-dilated. LYMPH NODES: No significant abnormality. No enlarged lymph nodes. CT/Abdomen/Pelvis without Cont IMPRESSION: Inflammatory changes around the sigmoid colon with focal wall thickening and associated diverticulosis indicating acute uncomplicated diverticulitis. Electronically Signed: Titus Wolfe DO at 20:17 EDT ,
--- NOTE | 2024-02-02 19:11 | EX.ED.DYSGE1 ---
HPI History of Present Illness Chief Complaint: Complaint Narrative Narrative: 43-year-old male past medical history of previous diverticulitis presents with lower abdominal pain that he has had since Tuesday, 4 days ago. He thought maybe he was having problems with diverticulitis. He states when he starts to eat correctly, he usually resolves on its own. He denies problems with bowel movements and had normal bowel movement this morning. However, over the last few days, he developed dysuria and burning with urination. He denies any fevers or chills, no gross hematuria, but he states he has had bilateral low back pain which is unusual for him, and additionally has had pain in his lower abdomen that feels similar to kick to the testicles. He states he is not having testicular pain, but it is more lower abdominal pain that radiates towards his testicles. He took Tylenol a few days ago with minimal relief of his symptoms. [facility] Medical History Family history of ischemic heart disease Hyperlipidemia neck/back pain Severe headache Obstructive sleep apnea Anxiety Gout Rapid palpitations Home Medications ?Medication ?Instructions ?Recorded ?Last Taken ?Type acetaminophen 500 mg tablet 500 mg PO Q6H PRN 10/30/22 Unknown History (Tylenol Extra Strength) cholecalciferol (vitamin D3) 125 125 mcg PO DAILY 06/10/23 Unknown History mcg (5,000 unit) tablet multivitamin 1 tab PO DAILY 06/10/23 Unknown History propranolol 60 mg capsule,24 60 mg PO DAILY 06/10/23 Unknown History hr,extended release zinc gluconate 30 mg tablet 30 mg PO DAILY 06/10/23 Unknown History ciprofloxacin HCl 500 mg tablet 500 mg PO BID #20 tabs 02/02/24 Unknown Rx (Cipro) metronidazole 500 mg tablet 500 mg PO TID #30 tabs 02/02/24 Unknown Rx tramadol 50 mg tablet 50 mg PO Q6H PRN pain #12 tabs 02/02/24 Unknown Rx Allergy/AdvReac Type Severity Reaction Status Date / Time simvastatin AdvReac Intermediate GI upset Verified 02/02/24 18:36 Family History Father CAD (coronary artery disease) Uncle CAD (coronary artery disease) Surgical History History of vasectomy Social History Smoking Status: Never smoker alcohol intake: never ROS ROS ED ROS Narrative Constitutional: No fever, no chills. HEENT: No sore throat. No neck pain. No loss of vision. No rhinorrhea. Cardiovascular: No chest pain. No palpitations. No pedal edema. Respiratory: No cough, no shortness of breath. Abdominal: Positive lower, left greater than right abdominal pain. No nausea. No vomiting. No problems with bowel movements. Genitourinary: No dysuria. No hematuria. Musculoskeletal: No myalgias. No arthralgias. Positive low back pain. Neurologic: No headaches. No dizziness. No lightheadedness. Skin: No rash. No change in color. Psychiatric: No depression. No anxiety. EXAM Physical Exam Narrative Exam Narrative: Afebrile. Vital signs noted. HEENT: Normocephalic. Atraumatic. PERRL, EOMI. Neck soft and supple. No point tenderness or step off. Cardiovascular: Regular rate and rhythm. No murmurs, rubs, or gallops appreciated. Respiratory: No tachypnea. Lungs clear to auscultation bilaterally. Gastrointestinal: Abdomen soft, mild tenderness in suprapubic to bilateral lower quadrant with normoactive bowel sounds. No rebound or guarding. Genitourinary: Chaperoned testicular examination reveals no orchitis, testicular tenderness, or epididymal pain. Neurological: Awake. Alert. Nonfocal, nonlateralizing. Skin: No rash. Normal color. No pallor. Musculoskeletal: No pedal edema. Full range of motion extremities. Const Vital Signs: 02/02/24 18:36 02/02/24 18:38 Temperature 97.5 F L 97.5 F L Temperature Source Temporal Temporal Pulse Rate 85 72 Respiratory Rate 16 15 Blood Pressure 144/85 H 144/85 H Blood Pressure Mean 104 104 Pulse Ox 99 99 Oxygen Delivery Method Room Air Room Air MDM MDM MDM Narrative Medical decision making narrative: In the differential diagnosis is cystitis versus diverticulitis versus ureterolithiasis versus pyelonephritis. Patient is afebrile here, nontoxic-appearing. Comprehensive workup was pursued. I will obtain basic laboratory work including CBC and CMP along with urinalysis to look for infection. I do feel CT imaging without contrast would be indicated. I do feel that it would be able to see any diverticulitis along with ureterolithiasis. I reviewed his laboratory work and he has normal white count of 10.9, hemoglobin normal at 15.3 with platelet count normal at 185. CMP is grossly unremarkable except for glucose 108 with a normal anion gap of 6, LFTs are grossly unremarkable. Urinalysis is negative for infection. I reviewed the radiology report of the CT of the abdomen and pelvis without contrast and he has inflammatory changes around the sigmoid colon consistent with sigmoid diverticulitis. Repeat examination shows him resting comfortably. His abdomen remains soft. He was given his first doses of ciprofloxacin and Flagyl here in the emergency department. He had been given Toradol for pain initially and stated he was feeling slightly improved. At this point in time, as he does not have a fever or white count, I feel he can be treated as an outpatient. He was written his prescriptions for ciprofloxacin and Flagyl for the next 10 days. I offered to write a narcotic pain medication but he declined. Instead, I wrote him for tramadol, and he was told of the risk of perforation of diverticulae, and abscess development, and acknowledges an understanding. He will follow-up with his primary care provider in the next few days. Return instructions to the emergency department were reviewed. Disposition is discharged home in stable condition. History & Record Review Discussion w/independent historian: Patient Lab Data Attestation: I reviewed the patient's lab results. Labs: Laboratory Results - last 24 hr 02/02/24 02/02/24 19:30 19:48 WBC 10.9 RBC 5.11 Hgb 15.3 Hct 43.6 MCV 85.3 MCH 29.9 MCHC 35.1 RDW Std Deviation 38.5 RDW Coeff of Fang 12.6 Plt Count 185 MPV 11.3 Immature Gran % (Auto) 0.300 Neut % (Auto) 75.3 H Lymph % (Auto) 14.3 L [place] % (Auto) 9.3 Eos % (Auto) 0.4 Baso % (Auto) 0.4 Absolute Neuts (auto) 8.2 H Absolute Lymphs (auto) 1.56 Nucleated RBC % 0 Sodium 139 Potassium 3.7 Chloride 104 Carbon Dioxide 29.0 Anion Gap 6 BUN 12 Creatinine 0.95 Estim Creat Clear Calc 133.65 Est GFR (MDRD) Af Amer 111 Est GFR (MDRD) Non-Af 92 BUN/Creatinine Ratio 12.6 Glucose 108 H Calcium 9.3 Total Bilirubin 1.00 AST 18 ALT 51 Alkaline Phosphatase 97 Total Protein 7.4 Albumin 3.8 Globulin 3.6 Albumin/Globulin Ratio 1.1 Urine Color Yellow Urine Clarity Clear Urine pH 6.0 Ur Specific [place] 1.020 Urine Protein Negative Urine Glucose (UA) Normal Urine Ketones Negative Urine Occult Blood Negative Urine Nitrite Negative Urine Bilirubin Negative Urine Urobilinogen 1 H Ur Leukocyte Esterase Negative Urine RBC 0 SEEN Urine WBC 0 SEEN Ur Squamous Epith Cells 0 SEEN Urine Bacteria 0 SEEN Urine Mucus 0 SEEN Radiography Diagnostic Testing: Clinical Impression(s) from Imaging Studies Abdomen/Pelvis CT 02/02/24 19:09 IMPRESSION: Inflammatory changes around the sigmoid colon with focal wall thickening and associated diverticulosis indicating acute uncomplicated diverticulitis. Electronically Signed: Titus Wolfe DO at 20:17 EDT , Discharge Plan Triage Chief Complaint: Complaint ED Provider: Leland Sumner Dx/Rx/DC Orders Clinical Impression: Sigmoid diverticulitis, Dysuria Instructions: ED Diverticulitis, ED Dysuria, Uncertain Cause (Adult) Prescriptions: New ciprofloxacin HCl [Cipro] 500 mg tablet 500 mg PO BID Qty: 20 0RF metronidazole 500 mg tablet 500 mg PO TID Qty: 30 0RF tramadol 50 mg tablet 50 mg PO Q6H PRN (Reason: pain) Qty: 12 0RF No Action acetaminophen [Tylenol Extra Strength] 500 mg tablet 500 mg PO Q6H PRN propranolol 60 mg capsule,extended release 24 hr 60 mg PO DAILY Patient Comments: TAKE 1 CAPSULE BY MOUTHeONCE DAILY cholecalciferol (vitamin D3) 125 mcg (5,000 unit) tablet 125 mcg PO DAILY zinc gluconate 30 mg tablet 30 mg PO DAILY multivitamin Tablet 1 tab PO DAILY Primary Care Provider: Samson Forbes Referrals: Samson Forbes DO [Primary Care Provider] - 1-2 Days if not improving Activity Restrictions/Additional Instructions: Return with fever, increased pain, new or worsening symptoms. Take all the antibiotics as directed. You can continue Tylenol or ibuprofen for pain, and you have been given a prescription for tramadol as well. Follow-up with your primary care provider in the next 1 to 2 days as well versus early next week. Print Language: [place] Disposition Disposition: Home, Self Care
[2024-02-02] MEDS: 0.9% Normal Saline (1000mL) 1,000 ML 1000 ML IV (19:39)
[2024-02-02] MEDS: Ketorolac 15 MG/ML Vial IV (19:39)
[2024-02-02 19:42] LABS: Absolute Lymphocyte Count 1.56 X10^3/uL (0.83-4.51); Absolute Neutrophil Count 8.2 X10^3/uL (2.0-7.7); Basophil# 0.04 X10^3/uL; Basophil% 0.4 % (0-1); Eosinophil# 0.04 X10^3/uL; Eosinophils% 0.4 % (0-5); Hematocrit 43.6 % (40-54); Hemoglobin 15.3 g/dL (13.0-16.5); Lymphocyte # 1.56 X10^3/ul (0.83-4.51); Lymphocyte % 14.3 % (19-41); Mean Corp Hgb Conc 35.1 g/dL (32-36); Mean Corpuscular Hgb 29.9 pg (27.0-32.0); Mean Corpuscular Volume 85.3 fL (80-94); Mean Platelet Vol. 11.3 fl (6.2-12.0); Monocyte# 1.02 X10^3/uL; Monocyte% 9.3 % (0-10); NRBC Flagged by Analyzer 0 % (0-5); Neutrophil # 8.23 X10^3/uL (2.7-7.7); Neutrophil % 75.3 % (47-70); Platelet Count 185 K/mm3 (150-450); RBC Distribution Width CV 12.6 % (11.6-14.6); RBC Distribution Width SD 38.5 fl (35.1-43.9); Red Blood Count 5.11 M/mm3 (4.6-6.2); White Blood Count 10.9 K/mm3 (4.4-11.0)
[2024-02-02 19:56] LABS: Bacteria 0 SEEN /hpf (None Seen); Mucous, Urine 0 SEEN /hpf (<or=2+); Red Blood Cells-Urine 0 SEEN /hpf (0-5); Squamous Epithelial Cells - UA 0 SEEN /hpf (0-5); White Blood Cells 0 SEEN /hpf (0-5)
[2024-02-02 19:59] LABS: ALB/GLOB Ratio 1.1 RATIO (0.9-2.4); AST(SGOT) 18 U/L (15-37); Alanine Aminotransfer ALT/SGPT 51 U/L (16-61); Albumin, Serum 3.8 g/dL (3.2-5.0); Alkaline Phosphatase 97 U/L (45-117); Anion Gap 6 (5-15); BUN 12 mg/dL (7-18); BUN/Creat Ratio 12.6 RATIO (10-20); Calcium,Total 9.3 mg/dL (8.5-10.1); Chloride 104 mmol/L (98-107); Creatinine, Serum 0.95 mg/dL (0.70-1.30); EST Glomerular Filtration Rate 92 mL/min (>60); Est Glom Filt Rate - Afr Amer 111 mL/min (>60); Estimated Creatinine Clearance 133.65 ml/min; Globulin 3.6 g/dL (2.2-4.2); Glucose 108 mg/dL (74-106); Potassium 3.7 mmol/L (3.5-5.1); Protein, Total 7.4 g/dL (6.4-8.2); Sodium Level 139 mmol/L (136-145)
[2024-02-02 20:03] LABS: Color, Urine Yellow (Yellow); Glucose, Dipstick Normal (Normal); Ketone-Dipstick Negative (Negative); Leukocyte Esterase-Dipstick Negative /ul (Negative); Nitrite-Dipstick Negative (Negative); Occult Blood-Urine Negative /ul (Negative); Protein-Dipstick Negative (Negative); Urine Bilirubin Dipstick Negative (Negative); Urine Clarity Clear (Clear); Urine Urobilinogen 1 mg/dl (Normal)
[2024-02-02 20:35] VITALS: PULSE 76
[2024-02-02] MEDS: Ciprofloxacin 500 MG Tablet PO (21:10)
[2024-02-02] MEDS: metroNIDAZOLE 500 MG Tablet PO (21:10)
[2024-02-02 21:15] VITALS: BP 139/82; PULSE 76; RESP 18; TEMP 36.4; O2SAT 96
== END 2024-02-02 21:17 | disposition home or self-care (01) ==
PROVIDERS: Emergency Provider Emergency Medicine; PCP Family Medicine; Visit Provider Emergency Medicine
DX: K57.32 Diverticulitis of large intestine without perforation or abscess without bleeding (principal); E78.5 Hyperlipidemia, unspecified; R30.0 Dysuria; Z98.52 Vasectomy status
CPT/HCPCS: 74176; 80053; 81001; 85025; 96361; 96374; 99283; J7030